=== PATIENT | female | born 1985 | race Caucasian/White ===

== ENCOUNTER 2021-03-08 12:40 | Emergency (ER) | payer MEDICAID, OTHER ==
[~2021-03-08] VITALS: Ht 152.4 cm; Wt 56.7 kg
--- NOTE | 2021-03-08 12:51 | NUR ---
Dr Chong at the bedside for MSE.
[2021-03-08] MEDS ORDERED: HYDR-4209 PO (13:55)
--- NOTE | 2021-03-08 14:14 | NUR ---
Patient discharged to home in stable condition. Written and verbal after care instructions given. Patient verbalizes understanding of instructions. Stressed follow up or return to ER for worsening s/s.
== END 2021-03-08 14:14 | disposition home or self-care (01) ==
LOC: ER 12:40
DX: S62.346A Nondisplaced fracture of base of fifth metacarpal bone, right hand, initial encounter for closed fracture (principal); S80.211A Abrasion, right knee, initial encounter; W01.0XXA Fall on same level from slipping, tripping and stumbling without subsequent striking against object, initial encounter; Y92.89 Other specified places as the place of occurrence of the external cause
CPT/HCPCS: 73130; A4663

== ENCOUNTER 2024-07-14 11:41 | Emergency (ER) | payer MEDICAID, OTHER ==
[~2024-07-14] VITALS: Ht 139.7 cm; Wt 43.7 kg
[~2024-07-14 11:41] MED LIST: HYDR-4209 PO
[2024-07-14 12:48] LABS: *CLARITY,URINE SLIGHTLY CLOUDY (CLEAR); *COLOR,URINE AMBER (YELLOW); *KETONES,URINE 4+ (NEGATIVE); *PROTEIN,URINE TRACE (NEGATIVE); *UROBILINOGEN,URINE 0.2 E.U./dl (NORMAL); LEUKOCYTE ESTERASE ,URINE TRACE (NEGATIVE); NITRITE, URINE NEGATIVE (NEGATIVE); UGLUCOSE NEGATIVE (NEGATIVE)
[2024-07-14 12:51] LABS: *BILIRUBIN,URIN 1+ (NEGATIVE); *BLOOD, URINE TRACE (NEGATIVE)
[2024-07-14 13:33] LABS: BACTERIA,URINE MODERATE /HPF (NONE SEEN); RBC,URINE 0-3 /HPF (0-3); SQUAMOUS EPITHELIAL CELL,UR MODERATE /HPF (NONE SEEN); YEAST,URINE BUDDING YEAST /HPF (NONE SEEN)
[2024-07-14] MEDS ORDERED: DICY10SY2 PO (13:40)
[2024-07-14] MEDS ORDERED: FOSFOMYCIN TROMETHAMINE 3 GM PACKET ONE (13:41)
[2024-07-14] MEDS: FOSFOMYCIN TROMETHAMINE 3 GM PACKET PO ONE (13:44)
[2024-07-14 13:55] VITALS: BP 114/56; O2SAT 96
== END 2024-07-14 13:58 | disposition home or self-care (01) ==
LOC: EDBD 11:42 → ER 11:42
DX: R10.9 Unspecified abdominal pain (principal)
CPT/HCPCS: 74018; A4606; A4663